=== PATIENT | male | born 1945 | race Caucasian/White ===

== ENCOUNTER 2017-06-15 16:09 | Emergency (ER) | payer OTHER ==
[2017-06-15] MEDS ORDERED: MORPHINE 4 MG/ML SYR ONE ×2 (17:08→19:49)
[2017-06-15] MEDS ORDERED: ONDANSETRON 4 MG/2 ML VIAL ONE ×2 (17:08→19:49)
[2017-06-15] MEDS ORDERED: NA CHLORIDE 0.9% 1,000 ML ONE (17:08)
[2017-06-15 17:19] LABS: Absolute Lymphocytes (CBC) 2.2 K/uL (0.7-4.9); Absolute Monocytes 0.9 K/uL (0.1-1.3); Basophils % 0.8 % (0-1.3); Eosinophils % 3.6 % (0-4.4); Hematocrit 34.3 % (39.6-49.0); Lymphocytes % 20.9 % (15.3-44.8); MCH 28.6 pg (27.0-35.0); MCV 88.8 fL (80-100); MPV 8.5 fL (7.6-11.3); Monocytes % 8.2 % (3.3-12.3); RBC Red Blood Cell Count 3.86 M/uL (4.33-5.43)
[2017-06-15 17:25] LABS: Bicarbonate 30 mEq/L (21-31); Glucose Level 73 mg/dL (65-120); Lipase 19 U/L (22-51); Potassium 3.6 mEq/L (3.6-5.0); Sodium Level 135 mEq/L (135-145)
[2017-06-15 17:31] LABS: ALT/SGPT 14 IU/L (10-60); AST/SGOT 19 IU/L (10-42); Albumin 4.1 g/dL (3.2-5.5); Alkaline Phosphatase 59 IU/L (42-121); BUN Blood Urea Nitrogen 24 mg/dL (6-20); Bilirubin Direct < 0.1 mg/dL (0-0.2); Bilirubin Total 0.3 mg/dL (0.3-1.2); Glomerular Filtration Rate 68 mL/min (=/>90); Protein, Total 7.1 g/dL (6.0-8.3)
--- NOTE | 2017-06-15 17:39 | RAD REPORT ---
EXAM DESCRIPTION: CT - Stone Protocol - 06/15/2017 5:26 pm CLINICAL HISTORY: Flank pain. COMPARISON: 09/26/2016 TECHNIQUE: Axial images were obtained without oral or IV contrast. Lack of contrast limits solid org an and vascular assessment. The [id number] spans the entirety of the system partially obscuring uppermost abdomen and lung bases. Coronal reformatted images were obtained and reviewed. All CT scans are performed using dose optimization technique as appropriate and may include automated exposure control or mA/KV adjustment according to patient size. FINDINGS: The lower lung lima are clear. Imaged portions of the liver and spleen show no suspicious findings on non-contrast imaging. The panc reas and adrenal glands are normal. No pathologic lymphadenopathy in the abdomen or pelvis. No urinary tract stones or obstructive uropathy. No bowel obstruction, free air, free fluid or abscess. Normal appendix noted. Moderate lumbar degenerative changes. Small fat containing inguinal hernias, larger on the left. IMPRESSION: No urinary tract stones or obstructive uropathy.
--- NOTE | 2017-06-15 18:01 | ER ---
Nurse's Notes [facility] Name: Giovany Trimble Age: 71 yrs Sex: Male : 1945 Arrival Date: 06/15/2017 Time: 16:09 Bed 20 Private MD: Diagnosis: Low back pain Presentation: 06/15 16:25 Presenting complaint: Patient states: I have had back pain on the lower right since la1 last night. I have had 7 kidney stones and I am concerned that could be whats going on. Transition of care: patient was not received from another setting of care. Onset of symptoms was June 15, 2017. Care prior to arrival: None. 16:25 Method Of Arrival: Wheelchair la1 16:25 Acuity: YEISON 3 la1 Historical: - Allergies: 16:26 iv dye; la1 - PMHx: 16:26 Diabetes - NIDDM; Hypertension; la1 - Immunization history:: Adult Immunizations up to date. - Social history:: Smoking status: Patient/guardian denies using tobacco. Screenin:15 Abuse screen: Denies threats or abuse. Nutritional screening: No deficits noted. em Tuberculosis screening: No symptoms or risk factors identified. Fall Risk None identified. Assessment: 16:40 General: Appears in no apparent distress. uncomfortable, Behavior is calm, cooperative, em Reports back pain that started yesterday, reports nausea and feels like previous kidney stone. Pain: Complains of pain in back Pain currently is 8 out of 10 on a pain scale. Neuro: Level of Consciousness is awake, alert, obeys commands, Oriented to person, place, time, situation. Cardiovascular: Capillary refill < 3 seconds Patient's skin is warm and dry. Respiratory: Airway is patent Respiratory effort is even, unlabored, Respiratory pattern is regular, symmetrical. GI: Abdomen is flat, Bowel sounds present X 4 quads. Reports nausea, Patient currently denies vomiting. : Denies. EENT: No signs and/or symptoms were reported regarding the EENT system. Derm: Skin is intact, Skin is pink, warm \T\ dry. Musculoskeletal: Range of motion: intact in all extremities. 16:45 General: The previous assessment is accurate, call light remains within reach .. ss 17:40 Reassessment: Patient appears in no apparent distress at this time. Patient and/or em family updated on plan of care and expected duration. Pain level reassessed. Patient is alert, oriented x 3, equal unlabored respirations, skin warm/dry/pink. 18:40 Reassessment: Patient appears in no apparent distress at this time. Patient and/or em family updated on plan of care and expected duration. Pain level reassessed. Patient is alert, oriented x 3, equal unlabored respirations, skin warm/dry/pink. 19:00 Reassessment: RECD REPORT FROM FILI ANDERSON. 71YO WM P/W LUMBAR PAIN, H/O NIDDM, HTN AND bp INGUINAL HERNIA. ALL CURRENT ORDERS COMPLETED, RESULTS AND DISPO PENDING. 20:29 Reassessment: PROVIDER AT B/S FOR RE-EVAL. DISPO PENDING. bp 20:53 Reassessment: PT D/C HOME AMBULATORY, TO F/U WITH URO, DX WITH BACK PAIN. bp Vital Signs: 16:26 BP 144 / 79; Pulse 57; Resp 19; Temp 97.6; Pulse Ox 100% on R/A; Weight 88.45 kg; la1 Height 5 ft. 8 in. (172.72 cm); 18:55 BP 169 / 77; Pulse 65; Resp 18; Pulse Ox 98% on R/A; mh5 19:45 BP 151 / 77; Pulse 61; Resp 16; Pulse Ox 94% ; bp 20:15 BP 154 / 63; Pulse 62; Resp 16; Pulse Ox 94% ; bp 16:26 Body Mass Index 29.65 (88.45 kg, 172.72 cm) la1 ED Course: 16:09 Patient arrived in ED. as 16:26 Triage completed. la1 16:26 Arm band placed on right wrist. la1 16:28 Lonnie Newton NP is PHCP. pm1 16:28 Antonio Lyons MD is Attending Physician. pm1 16:30 Fili Lopes LVN is Primary Nurse. em 16:38 Radiology exam delayed due to Patient wants nausea and pain meds before going to CT, 2 Nurse Fili notified will call when patient is ready. 17:00 Missed attempt(s): 20 gauge in right in left antecubital area. Bleeding controlled, em band aid applied, catheter tip intact. 17:00 No provider procedures requiring assistance completed. em 17:17 Patient has correct armband on for positive identification. Bed in low position. Call em light in reach. Side rails up X2. Adult w/ patient. 17:[address] nd 17:25 CT completed. Patient tolerated procedure well. Patient moved back from CT. nd 17:26 CT Stone Protocol In Process Unspecified. EDMS 20:41 Xenia Sanderson MD is Referral Physician. pm1 20:54 IV discontinued, intact, bleeding controlled, No redness/swelling at site. Pressure bp dressing applied. Administered Medications: 17:15 Drug: morphine 4 mg Route: IVP; Site: right antecubital; jl7 18:35 Follow up: Response: No adverse reaction; Pain is decreased em 17:15 Drug: Zofran 4 mg Route: IVP; Site: right antecubital; jl7 18:36 Follow up: Response: No adverse reaction em 17:29 Drug: NS 0.9% 1000 ml Route: IV; Rate: 1000 ml; Site: right antecubital; em 18:35 Follow up: IV Status: Completed infusion; IV Intake: 1000ml em 19:41 Drug: morphine 4 mg Route: IVP; Site: right antecubital; bp 20:54 Follow up: Response: No adverse reaction bp 19:42 Drug: Zofran 4 mg Route: IVP; Site: right antecubital; bp 20:55 Follow up: Response: No adverse reaction bp Intake: 18:35 IV: 1000ml; Total: 1000ml. em Outcome: 18:01 Discharge ordered by MD. pm1 20:41 Discharge ordered by MD. pm1 20:54 Discharged to home ambulatory. bp 20:54 Condition: stable 20:54 Discharge instructions given to patient, Instructed on discharge instructions, follow up and referral plans. medication usage, Demonstrated understanding of instructions, follow-up care, medications, Prescriptions given X 3. 20:55 Patient left the ED. bp Signatures: Dispatcher [employer] EDAZ Fili Lopes, CITY DIRECTOR CITY DIRECTOR em Katharine Varela Shelby, RN RN ss Attema, Lee, RN RN la1 Lonnie Newton, COLOR CHECKER ROVING OR YARN COLOR CHECKER ROVING OR YARN pm1 Sammy Joel Maria Carola Bergman RN RN jl7 Shante Irene [facility] Valentin Thomas RN RN bp Corrections: (The following items were deleted from the chart) 17:17 17:15 Admitted to Med/surg accompanied by tech, via wheelchair, room 201, with chart, em Report called to ADEEL Mata em : Condition: good em em : Instructed on the need for admit, Demonstrated understanding of instructions, em em
--- NOTE | 2017-06-15 18:02 | EDPHYS ---
Physician Documentation [facility] Name: Giovany Trimble Age: 71 yrs Sex: Male : 1945 Arrival Date: 06/15/2017 Time: 16:09 Bed 20 Private MD: ED Physician Antonio Lyons HPI: 06/15 17:26 This 71 yrs old Male presents to ER via Wheelchair with complaints of Back pm1 Pain. 17:26 The patient presents with pain that is acute. The symptoms are located in the right low pm1 back. Onset: The symptoms/episode began/occurred last night. The pain does not radiate. Associated signs and symptoms: Pertinent negatives: abdominal pain, chest pain, dysuria, fever, headache, nausea, numbness, tingling, vomiting. The problem was sustained from unknown cause, positive for history of kidney stones. Modifying factors: The patient symptoms are alleviated by specific position, the patient symptoms are aggravated by nothing. Severity of symptoms: in the emergency department the symptoms are unchanged. The patient has experienced similar episodes in the past, multiple times. Historical: - Allergies: 16:26 iv dye; la1 - PMHx: 16:26 Diabetes - NIDDM; Hypertension; la1 - Immunization history:: Adult Immunizations up to date. - Social history:: Smoking status: Patient/guardian denies using tobacco. ROS: 17:26 Constitutional: Negative for fever, chills, and weight loss, Eyes: Negative for injury, pm1 pain, redness, and discharge, ENT: Negative for injury, pain, and discharge, Neck: Negative for injury, pain, and swelling, Cardiovascular: Negative for chest pain, palpitations, and edema, Respiratory: Negative for shortness of breath, cough, wheezing, and pleuritic chest pain, Abdomen/GI: Negative for abdominal pain, nausea, vomiting, diarrhea, and constipation. 17:26 : Negative for injury, bleeding, discharge, and swelling, MS/Extremity: Negative for injury and deformity, Skin: Negative for injury, rash, and discoloration, Neuro: Negative for headache, weakness, numbness, tingling, and seizure. 17:26 Back: Positive for flank pain, on the right. Exam: 17:26 Constitutional: This is a well developed, well nourished patient who is awake, alert, pm1 and in no acute distress. Head/Face: Normocephalic, atraumatic. Eyes: Pupils equal round and reactive to light, extra-ocular motions intact. Lids and lashes normal. Conjunctiva and sclera are non-icteric and not injected. Cornea within normal limits. Periorbital areas with no swelling, redness, or edema. ENT: Nares patent. No nasal discharge, no septal abnormalities noted. Tympanic membranes are normal and external auditory canals are clear. Oropharynx with no redness, swelling, or masses, exudates, or evidence of obstruction, uvula midline. Mucous membranes moist. Neck: Trachea midline, no thyromegaly or masses palpated, and no cervical lymphadenopathy. Supple, full range of motion without nuchal rigidity, or vertebral point tenderness. No Meningismus. Chest/axilla: Normal chest wall appearance and motion. Nontender with no deformity. No lesions are appreciated. Cardiovascular: Regular rate and rhythm with a normal S1 and S2. No gallops, murmurs, or rubs. Normal PMI, no JVD. No pulse deficits. Respiratory: Lungs have equal breath sounds bilaterally, clear to auscultation and percussion. No rales, rhonchi or wheezes noted. No increased work of breathing, no retractions or nasal flaring. Abdomen/GI: Soft, non-tender, with normal bowel sounds. No distension or tympany. No guarding or rebound. No evidence of tenderness throughout. 17:26 Skin: Warm, dry with normal turgor. Normal color with no rashes, no lesions, and no evidence of cellulitis. MS/ Extremity: Pulses equal, no cyanosis. Neurovascular intact. Full, normal range of motion. 17:26 Back: pain, that is mild, of the right low back, normal spinal alignment noted, vertebral tenderness, is not appreciated. 17:26 Neuro: Orientation: is normal, Mentation: is normal, Motor: moves all fours, strength is normal, strength is 5/5 in all extremities, Sensation: is normal, Gait: is steady, at a normal pace, without difficulty. Vital Signs: 16:26 BP 144 / 79; Pulse 57; Resp 19; Temp 97.6; Pulse Ox 100% on R/A; Weight 88.45 kg; la1 Height 5 ft. 8 in. (172.72 cm); 18:55 BP 169 / 77; Pulse 65; Resp 18; Pulse Ox 98% on R/A; mh5 19:45 BP 151 / 77; Pulse 61; Resp 16; Pulse Ox 94% ; bp 20:15 BP 154 / 63; Pulse 62; Resp 16; Pulse Ox 94% ; bp 16:26 Body Mass Index 29.65 (88.45 kg, 172.72 cm) la1 MDM: 16:28 Patient medically screened. pm1 17:32 Data reviewed: vital signs. Data interpreted: Pulse oximetry: on room air is 100 %. pm1 Interpretation: normal. 18:00 Counseling: I had a detailed discussion with the patient and/or guardian regarding: the pm1 historical points, exam findings, and any diagnostic results supporting the discharge/admit diagnosis, lab results, radiology results, the need for outpatient follow up, to return to the emergency department if symptoms worsen or persist or if there are any questions or concerns that arise at home. 06/15 16:31 Order name: Basic Metabolic Panel; Complete Time: 17:32 pm1 06/15 16:31 Order name: CBC with Diff; Complete Time: 17:26 pm1 06/15 16:31 Order name: Hepatic Function; Complete Time: 17:32 pm1 06/15 16:31 Order name: Lipase; Complete Time: 17:32 pm1 06/15 16:31 Order name: Urine Microscopic Only; Complete Time: 18:44 pm1 06/15 18:37 Order name: Urine Dipstick--Ancillary (enter results); Complete Time: 18:44 ag 06/15 16:31 Order name: IV Saline Lock; Complete Time: 17:29 pm1 06/15 16:31 Order name: Labs collected and sent; Complete Time: 17:29 pm1 06/15 16:31 Order name: CT Stone Protocol; Complete Time: 17:42 pm1 06/15 16:31 Order name: Urine Dipstick-Ancillary (obtain specimen); Complete Time: 19:05 pm1 Administered Medications: 17:15 Drug: morphine 4 mg Route: IVP; Site: right antecubital; jl7 18:35 Follow up: Response: No adverse reaction; Pain is decreased em 17:15 Drug: Zofran 4 mg Route: IVP; Site: right antecubital; jl7 18:36 Follow up: Response: No adverse reaction em 17:29 Drug: NS 0.9% 1000 ml Route: IV; Rate: 1000 ml; Site: right antecubital; em 18:35 Follow up: IV Status: Completed infusion; IV Intake: 1000ml em 19:41 Drug: morphine 4 mg Route: IVP; Site: right antecubital; bp 20:54 Follow up: Response: No adverse reaction bp 19:42 Drug: Zofran 4 mg Route: IVP; Site: right antecubital; bp 20:55 Follow up: Response: No adverse reaction bp Disposition: 06/15/17 20:41 Discharged to Home. Impression: Low back pain. - Condition is Stable. - Discharge Instructions: Back Pain, Adult. - Prescriptions for Tylenol- Codeine #3 300-30 mg Oral Tablet - take 2 tablets by ORAL route every 6 hours As needed; 20 tablet. Zofran 4 mg Oral Tablet - take 1 tablet by ORAL route every 8 hours As needed; 20 tablet. Flomax 0.4 mg Oral Capsule, Sust. Release 24 hr - take 1 capsule by ORAL route once daily 1/2 hour following the same meal each day; 30 capsule. - Medication Reconciliation Form, Thank You Letter, Prescription Opioid Use form. - Follow up: Emergency Department; When: As needed; Reason: Worsening of condition. Follow up: Private Physician; When: 2 - 3 days; Reason: Recheck today's complaints, Continuance of care, Re-evaluation by your physician. Follow up: Xenia Sanderson MD; When: 2 - 3 days; Reason: Recheck today's complaints, Continuance of care, Re-evaluation by your physician. - Problem is new. - Symptoms have improved. Addendum: 06/18/2017 08:25 Co-signature as Attending Physician, Antonio Lyons MD I agree with the assessment and c wilson plan of care. Signatures: Dispatcher [employer] Antonio Martinez MD MD cha Munoz, Edgar, JUMPBASTING MACHINE OPERATOR JUMPBASTING MACHINE OPERATOR em Yanick Fowler RN RN la1 Lonnie Newton, PANEL BEATER PANEL BEATER pm1 Carola Avina RN RN jl7 Valentin Thomas RN RN bp
[2017-06-15 18:40] LABS: Urine Blood TRACE (NEG); Urine Glucose NEGATIVE (NEG); Urine Protein NEGATIVE (NEG); Urine pH 5.5 (5.0-7.0)
[2017-06-15 18:42] LABS: Urine Bacteria <20 /HPF (NONE SEEN); Urine Culture Reflex Order NOT NEEDED; Urine Mucus NS /HPF (NONE SEEN); Urine RBC <5 /HPF (NONE SEEN)
== END 2017-06-15 20:55 | disposition home or self-care (01) ==
LOC: ER 16:09
DX: M54.5 Low back pain (principal); I10 Essential (primary) hypertension; Z91.041 Radiographic dye allergy status; Z87.442 Personal history of urinary calculi
CPT/HCPCS: 36415; 74176; 76377; 80048; 80076; 83690; 85025; 96361; 96374; 96375; 99284; J2405 ×2; J7030; 81003; 81015

== ENCOUNTER 2021-01-18 11:51 | Emergency (ER) | payer OTHER ==
[2021-01-18 13:19] LABS: Urine Blood 3+ (Negative); Urine Glucose Negative (Negative); Urine Protein 2+ (Negative); Urine Specific Gravity 1.015 (1.005-1.030); Urine pH 6.5 (5.0-7.0)
[2021-01-18 13:39] LABS: Urine RBC LOADED /HPF (NONE SEEN)
[2021-01-18 13:40] LABS: Urine Bacteria <20 /HPF (NONE SEEN)
--- NOTE | 2021-01-18 14:17 | RAD REPORT ---
EXAM DESCRIPTION: CT - Stone Protocol - 01/18/2021 1:38 pm CLINICAL HISTORY: HEMATURIA COMPARISON: Stone Protocol dated 06/15/2017; Stone Protocol dated 09/26/2016 TECHNIQUE: Axial 3 mm thick images were obtained without oral or IV contrast. The [id number] span s the entirety of the system including uppermost abdomen and lung bases. All CT scans are performed using dose optimization technique as appropriate and may include automated exposure control or mA/KV adjustment according to patient size. FINDINGS: No hydronephrosis is present and no obstructing ureteral calculi. No nonobstructing calcul i confirmed. No suspicious renal masses. Isodense masses and pyelonephritis are not excluded on a sto ne protocol CT scan. No significant adrenal finding. No urinary bladder suspicious finding. Prostate gland is prominent but does not appear to be invading any adjacent structure. Imaged portions of the liver, spleen and pancreas show no suspicious findings on non-contrast imaging . No gallbladder or biliary tree abnormality identified. Moderate stool volume fills the entire colon. No appendicitis findings. Diverticulosis is minimal. No acute stomach or small bowel finding identifiable. No mass or bulky lymphadenopathy identified. Small right-side and moderate size left-side fat filled inguinal hernias. Right side scrotal vascular calcification present. Disc and bone degenerative changes are present. Degenerative changes are advanced at the L4-5 and L5- S1 disc levels. There is bony foraminal stenosis present. IMPRESSION: No hydronephrosis, obstructing calculus or acute finding. Isodense masses and pyelonephritis are not excluded on stone protocol technique.No abnormality seen t o explain the patient's hematuria and pain pattern. Nonacute findings are detailed in the body of the report.
[2021-01-18 14:24] LABS: Absolute Lymphocytes (CBC) 2.1 K/uL (0.7-4.9); Basophils % 1.2 % (0-1.3); Hematocrit 35.6 % (39.6-49.0); Lymphocytes % 16.5 % (15.3-44.8); MPV 8.2 fL (7.6-11.3); RBC Red Blood Cell Count 4.23 M/uL (4.33-5.43)
[2021-01-18 14:37] LABS: Potassium 4.2 mmol/L (3.5-5.1)
[2021-01-18] MEDS ORDERED: CIPROFLOXACIN HCL 500 MG TAB ONE (15:57)
--- NOTE | 2021-01-18 16:02 | ER ---
Nurse's Notes [facility] Name: Giovany Trimble Age: 75 yrs Sex: Male : 1945 Arrival Date: 01/18/2021 Time: 11:55 Bed Treatment Private MD: Eris Quintanilla E Diagnosis: Hematuria. Urinary tract infection Presentation: 01/18 11:57 Chief complaint: Patient states: "I went to the bathroom this morning and there was aa5 more blood than pee". Pt c/o pain to pubic area. 11:57 Coronavirus screen: At this time, the client does not indicate any symptoms associated aa5 with coronavirus-19. Ebola Screen: No symptoms or risks identified at this time. Initial Sepsis Screen: Does the patient meet any 2 criteria? No. Patient's initial sepsis screen is negative. Does the patient have a suspected source of infection? No. Patient's initial sepsis screen is negative. Risk Assessment: Do you want to hurt yourself or someone else? Patient reports no desire to harm self or others. Onset of symptoms was January 18, 2021. 11:57 Method Of Arrival: Ambulatory aa5 11:57 Acuity: YEISON 3 aa5 Historical: - Allergies: 11:57 iv dye; aa5 - PMHx: 11:57 Diabetes - NIDDM; Hypertension; aa5 12:03 Kidney stone; aa5 - PSHx: 12:03 Lithotripsy; aa5 - Immunization history:: Client reports receiving the 2nd dose of the Covid vaccine. - Social history:: Smoking status: Patient denies any tobacco usage or history of. Screenin:20 Abuse screen: Denies threats or abuse. Denies injuries from another. Nutritional ld1 screening: No deficits noted. Tuberculosis screening: No symptoms or risk factors identified. Fall Risk None identified. Assessment: 13:20 General: Appears in no apparent distress. comfortable, Behavior is calm, cooperative, ld1 appropriate for age. Pain: Complains of pain in head of penis, shaft of penis and meatus Pain does not radiate. Pain currently is 5 out of 10 on a pain scale. Quality of pain is described as throbbing, "Heart beat in penis." Pain began 1 day ago. Is continuous. Neuro: Level of Consciousness is awake, alert, obeys commands, Oriented to person, place, time, situation, Appropriate for age. Cardiovascular: Capillary refill < 3 seconds Patient's skin is warm and dry. Respiratory: Airway is patent Respiratory effort is even, unlabored, Respiratory pattern is regular, symmetrical. GI: Abdomen is round non-distended. : Urine is blood tinged, [place] blood, Reports burning with urination, pain in penis. EENT: No signs and/or symptoms were reported regarding the EENT system. Derm: No signs and/or symptoms reported regarding the dermatologic system. Musculoskeletal: No signs and/or symptoms reported regarding the musculoskeletal system. 15:31 Reassessment: Patient appears in no apparent distress at this time. Patient and/or ld1 family updated on plan of care and expected duration. Pain level reassessed. Patient is alert, oriented x 3, equal unlabored respirations, skin warm/dry/pink. Vital Signs: 11:57 BP 152 / 58; Pulse 54; Resp 18 S; Temp 97.9(TE); Pulse Ox 100% on R/A; Weight 86.18 kg; aa5 Height 5 ft. 8 in. (172.72 cm) (R); 13:20 BP 148 / 60; Pulse 56; Resp 18; Pulse Ox 100% on R/A; Pain 6/10; ld1 15:31 BP 139 / 65; Pulse 62; Resp 18; Pulse Ox 100% on R/A; ld1 11:57 Body Mass Index 28.89 (86.18 kg, 172.72 cm) aa5 ED Course: 11:55 Patient arrived in ED. am2 11:56 Eris Quintanilla MD is Private Physician. am2 11:57 Arm band placed on. aa5 12:03 Triage completed. aa5 13:04 Safia Fitzpatrick, ADEEL is Primary Nurse. ld1 13:17 Luis Doyle MD is Attending Physician. pkl 13:20 Patient has correct armband on for positive identification. Bed in low position. Call ld1 light in reach. Side rails up X2. Pulse ox on. NIBP on. Door closed. Noise minimized. 13:20 No provider procedures requiring assistance completed. ld1 13:22 Urine Microscopic Only Sent. ld1 13:22 Urine Culture Sent. ld1 13:38 CT Stone Protocol In Process Unspecified. EDMS 14:16 Missed attempt(s): 20 gauge in right antecubital area. Bleeding controlled, band aid em1 applied, catheter tip intact. 14:17 Initial lab(s) drawn, by me, sent to lab. em1 16:01 José Miguel Colon MD is Referral Physician. pkl 16:11 IV discontinued, intact, bleeding controlled, No redness/swelling at site. ld1 Administered Medications: 16:01 Drug: Cipro (ciprofloxacin) 500 mg Route: PO; ld1 16:01 Follow up: Response: No adverse reaction ld1 Outcome: 16:02 Discharge ordered by . pkl 16:10 Discharged to home ambulatory. ld1 16:10 Condition: stable 16:10 Discharge instructions given to patient, Instructed on discharge instructions, follow up and referral plans. medication usage, Demonstrated understanding of instructions, follow-up care, medications, Prescriptions given X 1. 16:11 Patient left the ED. ld1 Signatures: Dispatcher [employer] EDMS Luis Doyle MD MD pkSteven Shane em1 Dorcas Jay, RN RN [id number] Leatha Morin am2 Safia Fitzpatrick RN RN ld1
--- NOTE | 2021-01-18 16:02 | EDPHYS ---
Physician Documentation [facility] Name: Giovany Trimble Age: 75 yrs Sex: Male : 1945 Arrival Date: 01/18/2021 Time: 11:55 Bed Treatment Private MD: Eris Quintanilla E ED Physician Luis Doyle HPI: 01/18 13:25 This 75 yrs old Male presents to ER via Ambulatory with complaints of Urinary pkl Problem - blood. 13:25 The patient presents with urinary symptoms, notice blood in the urine. Onset: The pkl symptoms/episode began/occurred this morning. Associated signs and symptoms: Pertinent positives: C/O left flank pain radiating to left groin yesterday. Think he passed a kidney. H/O multiple kidney stones. Historical: - Allergies: 11:57 iv dye; aa5 - PMHx: 11:57 Diabetes - NIDDM; Hypertension; aa5 12:03 Kidney stone; aa5 - PSHx: 12:03 Lithotripsy; aa5 - Immunization history:: Client reports receiving the 2nd dose of the Covid vaccine. - Social history:: Smoking status: Patient denies any tobacco usage or history of. ROS: 13:25 Eyes: Negative for injury, pain, redness, and discharge, ENT: Negative for injury, pkl pain, and discharge, Neck: Negative for injury, pain, and swelling, Cardiovascular: Negative for chest pain, palpitations, and edema, Respiratory: Negative for shortness of breath, cough, wheezing, and pleuritic chest pain, Abdomen/GI: Negative for abdominal pain, nausea, vomiting, diarrhea, and constipation, Back: Negative for injury and pain. 13:25 : Positive for hematuria. 13:25 MS/extremity: Negative for acute changes. 13:25 Skin: Negative for rash. 13:25 Neuro: Negative for altered mental status, loss of consciousness. Exam: 13:25 Head/Face: Normocephalic, atraumatic. Eyes: Pupils equal round and reactive to light, pkl extra-ocular motions intact. Lids and lashes normal. Conjunctiva and sclera are non-icteric and not injected. Cornea within normal limits. Periorbital areas with no swelling, redness, or edema. ENT: Nares patent. No nasal discharge, no septal abnormalities noted. Tympanic membranes are normal and external auditory canals are clear. Oropharynx with no redness, swelling, or masses, exudates, or evidence of obstruction, uvula midline. Mucous membranes moist. Neck: Trachea midline, no thyromegaly or masses palpated, and no cervical lymphadenopathy. Supple, full range of motion without nuchal rigidity, or vertebral point tenderness. No Meningismus. Chest/axilla: Normal chest wall appearance and motion. Nontender with no deformity. No lesions are appreciated. Cardiovascular: Regular rate and rhythm with a normal S1 and S2. No gallops, murmurs, or rubs. Normal PMI, no JVD. No pulse deficits. Respiratory: Lungs have equal breath sounds bilaterally, clear to auscultation and percussion. No rales, rhonchi or wheezes noted. No increased work of breathing, no retractions or nasal flaring. Abdomen/GI: Soft, non-tender, with normal bowel sounds. No distension or tympany. No guarding or rebound. No evidence of tenderness throughout. Back: No spinal tenderness. No costovertebral tenderness. Full range of motion. 13:25 : noticed blood in urine. 13:25 Musculoskeletal/extremity: Exam is negative for acute changes. 13:25 Skin: Exam negative for rash. 13:25 Neuro: Orientation: is normal, Mentation: is normal, Cranial nerves: grossly normal, Motor: is normal. Vital Signs: 11:57 BP 152 / 58; Pulse 54; Resp 18 S; Temp 97.9(TE); Pulse Ox 100% on R/A; Weight 86.18 kg; aa5 Height 5 ft. 8 in. (172.72 cm) (R); 13:20 BP 148 / 60; Pulse 56; Resp 18; Pulse Ox 100% on R/A; Pain 6/10; ld1 15:31 BP 139 / 65; Pulse 62; Resp 18; Pulse Ox 100% on R/A; ld1 11:57 Body Mass Index 28.89 (86.18 kg, 172.72 cm) aa5 MDM: 13:17 Patient medically screened. pkl 15:59 Data reviewed: vital signs, lab test result(s), radiologic studies, CT scan. ED course: pkl Patient feeling better. Asymptomatic. Advised to follow up with PCP/ Urologist in 2 to 3 days. Patient understood instructions. 01/18 13:19 Order name: Urine Dipstick-Ancillary; Complete Time: 13:24 EDMS 01/18 13:20 Order name: Urine Microscopic Only; Complete Time: 15:56 ld1 01/18 13:20 Order name: Urine Culture ld1 01/18 13:23 Order name: CBC with Diff; Complete Time: 15:56 pkl 01/18 13:23 Order name: Chem 7; Complete Time: 15:56 pkl 01/18 13:23 Order name: CT Stone Protocol; Complete Time: 15:56 pkl Administered Medications: 16:01 Drug: Cipro (ciprofloxacin) 500 mg Route: PO; ld1 16:01 Follow up: Response: No adverse reaction ld1 Disposition Summary: 01/18/21 16:02 Discharge Ordered Location: Home pkl Condition: Stable pkl Diagnosis - Hematuria. Urinary tract infection pkl Followup: pkl - With: José Miguel Colon MD - When: 2 - 3 days - Reason: Re-evaluation by your physician Discharge Instructions: - Discharge Summary Sheet pkl Forms: - Medication Reconciliation Form pkl - Thank You Letter pkl - Antibiotic Education pkl - Prescription Opioid Use pkl Prescriptions: - Cipro 500 mg Oral Tablet - take 1 tablet by ORAL route every 12 hours for 7 days; 14 tablet; Refills: 0, pkl Product Selection Permitted Signatures: Dispatcher [employer] Luis Berman MD MD pkl Dorcas Jay, RN RN aa5 Safia Fitzpatrick RN RN ld1
[2021-01-18 17:03] VITALS: TEMP 97.9; O2SAT 100
[2021-01-18 17:06] VITALS: BP 139/65
== END 2021-01-18 16:11 | disposition home or self-care (01) ==
LOC: ER 11:51
DX: N39.0 Urinary tract infection, site not specified (principal)
CPT/HCPCS: 36415; 74176; 76377; 80048; 81003; 81015; 85025; 87086; 87088; 99284